=== PATIENT | female | born 1980 | race African-American/Black ===

== ENCOUNTER 2021-03-13 11:20 | Emergency (ER) | payer BC, OTHER, SELFPAY ==
[2021-03-14 15:30] LABS: SARS-CoV-2 PCR by NAA Not Detected (NotDetected)
== END 2021-03-13 12:48 | disposition home or self-care (01) ==
LOC: NAV ERS 11:20
DX: B34.9 Viral infection, unspecified (principal); H66.92 Otitis media, unspecified, left ear
CPT/HCPCS: 71046; U0003; U0005

== ENCOUNTER 2021-11-30 18:02 | Emergency (ER) | payer SELFPAY ==
[2021-11-30] MEDS ORDERED: Ibuprofen 200 MG TAB ONE (18:23)
[2021-11-30] MEDS ORDERED: Bicillin LA 1.2 MILLION UNITS/2 ML SYRINGE ONE (18:52)
[2021-12-01 00:18] LABS: SARS-CoV-2 PCR by NAA Not Detected (NotDetected)
== END 2021-11-30 19:16 | disposition home or self-care (01) ==
LOC: NAV ERS 18:02
DX: J02.0 Streptococcal pharyngitis (principal); I10 Essential (primary) hypertension; Z20.822 Contact with and (suspected) exposure to COVID-19
CPT/HCPCS: 71046; 87430; 96372; J0561; U0003; U0005

== ENCOUNTER 2022-12-20 17:14 | Emergency (ER) | payer BC, SELFPAY ==
[2022-12-20] MEDS ORDERED: Cyclobenzaprine 10 MG TAB ONE (17:37)
[2022-12-20] MEDS ORDERED: Ibuprofen 800 MG TAB ONE (17:37)
== END 2022-12-20 17:39 | disposition home or self-care (01) ==
LOC: NAV ERS 17:14
DX: S39.012A Strain of muscle, fascia and tendon of lower back, initial encounter (principal); I10 Essential (primary) hypertension; E03.9 Hypothyroidism, unspecified; X50.1XXA Overexertion from prolonged static or awkward postures, initial encounter; Y99.0 Civilian activity done for income or pay
CPT/HCPCS: 99283